=== PATIENT | female | born 1995 | race African-American/Black ===

== ENCOUNTER 2021-07-17 20:42 | Inpatient (IN) | payer OTHER ==
[~2021-07-17] VITALS: Ht 162.6 cm; Wt 112.5 kg
[2021-07-17 21:29] LABS: HCT 36.7 % (37.0-47.0); HGB 12.5 g/dl (12.5-16.0); MCH 30.3 pg (25.0-31.0); MCHC 34.1 g/dL (32.0-36.0); MCV 89.1 fL (78.0-100.0); MPV 11.3 fL (6.0-9.5); RBC 4.12 M/uL (4.20-5.40); RDW 14.2 % (11.5-14.0); WBC 8.6 K/uL (4.0-10.5)
[2021-07-17 21:30] LABS: BILIRUBIN NEGATIVE (NEGATIVE); BLOOD NEGATIVE Ery/uL (NEGATIVE); CLARITY CLEAR (CLEAR); COLOR YELLOW (YELLOW); GLUCOSE (U) NORMAL (NORMAL); LEUKOCYTES TRACE Leu/uL (NEGATIVE); NITRITE NEGATIVE (NEGATIVE); PROTEIN TRACE (LOW) mg/dL (NEGATIVE); SPECIFIC GRAVITY >=1.030 (1.001-1.030); UROBILINOGEN 0.2 mg/dL (0.2-1.0)
[2021-07-17 21:34] LABS: AMPHETAMINES NEGATIVE (NEGATIVE); BARBITURATES NEGATIVE (NEGATIVE); ECSTASY (MDMA) NEGATIVE (NEGATIVE); MARIJUANA (THC) POSITIVE (NEGATIVE); METHADONE NEGATIVE (NEGATIVE); OPIATES NEGATIVE (NEGATIVE); OXYCODONE NEGATIVE (NEGATIVE)
[2021-07-17 21:39] LABS: BACTERIA 1+
[2021-07-19 06:02] LABS: HCT 32.8 % (37.0-47.0); MCH 30.3 pg (25.0-31.0); MCHC 33.5 g/dL (32.0-36.0); MCV 90.4 fL (78.0-100.0); MPV 11.7 fL (6.0-9.5); RBC 3.63 M/uL (4.20-5.40); RDW 13.9 % (11.5-14.0); WBC 14.2 K/uL (4.0-10.5)
[2021-07-20] MEDS ORDERED: IBUPROFEN800 MG PO (18:33)
[2021-07-20] MEDS ORDERED: ZOLOFT100 MG PO (18:33)
== END 2021-07-20 21:15 | disposition home or self-care (01) | DRG 787 ==
LOC: FOB 20:42
PROVIDERS: Obstetrics & Gynecology; ADMIT Obstetrics & Gynecology
PROC: 3E0P7VZ Introduction of Hormone into Female Reproductive, Via Natural or Artificial Opening (ICD-10-PCS; 2021-07-18)
PROC: 4A1HXCZ Monitoring of Products of Conception, Cardiac Rate, External Approach (ICD-10-PCS; 2021-07-18)
PROC: 10D00Z1 Extraction of Products of Conception, Low, Open Approach (ICD-10-PCS; principal; 2021-07-18 22:00)
DX: O99.214 Obesity complicating childbirth (principal); O98.32 Other infections with a predominantly sexual mode of transmission complicating childbirth; O99.02 Anemia complicating childbirth; Z37.0 Single live birth; O99.824 Streptococcus B carrier state complicating childbirth; J45.909 Unspecified asthma, uncomplicated; O99.513 Diseases of the respiratory system complicating pregnancy, third trimester; O76 Abnormality in fetal heart rate and rhythm complicating labor and delivery; Z3A.39 39 weeks gestation of pregnancy; O99.340 Other mental disorders complicating pregnancy, unspecified trimester; F41.9 Anxiety disorder, unspecified; F31.9 Bipolar disorder, unspecified; O99.334 Smoking (tobacco) complicating childbirth; F12.90 Cannabis use, unspecified, uncomplicated; A60.00 Herpesviral infection of urogenital system, unspecified; O99.613 Diseases of the digestive system complicating pregnancy, third trimester; K21.9 Gastro-esophageal reflux disease without esophagitis; Z79.82 Long term (current) use of aspirin; Z79.899 Other long term (current) drug therapy; Z87.440 Personal history of urinary (tract) infections
CPT/HCPCS: 36415; 80305; 81001; 86850; 86900; 86901; J0456; J0690; J1100; J1200; J1885; J2274; J2405; J2540; J7050; J7120